=== PATIENT | female | born 1995 | race Caucasian/White ===

== ENCOUNTER 2023-11-19 12:14 | Emergency (ER) | payer OTHER ==
[~2023-11-19] VITALS: Ht 160 cm; Wt 79.1 kg
[2023-11-19 12:28] VITALS: BP 115/59; PULSE 78; RESP 16; TEMP 97.3; O2SAT 100
[2023-11-19 14:02] LABS: BILIRUBIN,URINE NEGATIVE (NEGATIVE); BLOOD, URINE NEGATIVE (NEGATIVE); COLOR,URINE YELLOW (YELLOW); LEUKOCYTE ESTERASE ,URINE 3+ (NEGATIVE); NITRITE, URINE POSITIVE (NEGATIVE); PH,URINE 7.5 (5.0-9.0); PROTEIN,URINE NEGATIVE (NEGATIVE); UGLUCOSE NEGATIVE (NEGATIVE); UROBILINOGEN,URINE 0.2 EU/dL (0.2 - 1)
[2023-11-19 14:17] LABS: APPEARANCE,URINE HAZY (CLEAR); RBC,URINE 0 /HPF (0-5)
[2023-11-19 14:18] LABS: BACTERIA,URINE 2+ /HPF (None Seen); MUCUS,URINE None Seen /LPF (None Seen); SQUAMOUS EPITHELIAL CELL,UR 4-10 (MOD) /LPF (0-3 (FEW))
[2023-11-19] MEDS: ACETAMINOPHEN EXTRA STRENGTH 500 MG TAB PO ONE (15:00)
[2023-11-19 15:01] VITALS: BP 102/58; PULSE 67; RESP 17; TEMP 97.3; O2SAT 100
== END 2023-11-19 15:02 | disposition home or self-care (01) ==
LOC: MED 12:14
DX: O23.42 Unspecified infection of urinary tract in pregnancy, second trimester (principal); Z90.49 Acquired absence of other specified parts of digestive tract; Z3A.17 17 weeks gestation of pregnancy
CPT/HCPCS: 81001; 87086; 99283